=== PATIENT | male | born 1950 | race Caucasian/White ===

== ENCOUNTER 2017-04-26 17:10 | Emergency (ER) | payer OTHER, BC ==
--- NOTE | 2017-04-26 17:47 | EDPHY ---
H & P Time Seen by Provider: 04/26/17 17:41 HPI/ROS: Chief complaint. Elevated blood pressure HPI. [onset, timing, severity, modifying factors, similar symptoms previously, recently seen] ROS Constitutional. [no fever/chills, no weakness] Eyes. [no problems with vision] ENT. [no sore throat, no nasal drainage] Cardiovascular. [no chest pain] Respiratory. [no shortness of breath, no cough] Abdominal. [no abdominal pain, no nausea/vomiting, no diarrhea] . [no problems urinating] MS. [no calf pain/swelling, no neck/back pain, no joint pain] Skin. [no rash] Lymph. [no swollen glands] Neuro. [no headache, no dizziness, no difficulty walking or with speech] Smoking Status: Never smoked Constitutional: Initial Vital Signs Temperature (C) 37.2 C 04/26/17 17:17 Heart Rate 50 L 04/26/17 17:17 Respiratory Rate 15 04/26/17 17:17 Blood Pressure 212/109 H 04/26/17 17:17 O2 Sat (%) 96 04/26/17 17:17 O2 Delivery Mode Room Air Allergies/Adverse Reactions: No Known Allergies Allergy (Unverified 03/28/15 08:24) Home Medications: Medication Instructions Recorded HYOSCYAMINE SULFATE [LEVSIN-SL] 0.125 mg SL Q6-8PRN PRN #6 tab.subl 03/28/15 Ondansetron HCl [Zofran] 4 mg PO Q4-6PRN PRN #6 tablet 03/28/15 Atenolol 04/26/17 LORazepam [Ativan] 1 mg PO Q6-8PRN PRN #10 tab 04/26/17 Lisinopril 04/26/17 Lisinopril 20 mg PO DAILY #20 tablet 04/26/17 Medical Decision Making - Data Points Medications Given: Discontinued Medications Lisinopril (Zestril) 20 mg PO EDNOW ONE Stop: 04/26/17 18:50 Last Admin: 04/26/17 18:55 Dose: 20 mg Departure - Departure Disposition: Home, Routine, Self-Care Clinical Impression: Hypertension Qualifiers: Hypertension type: essential hypertension Qualified Code(s): I10 - Essential ( primary) hypertension Condition: Good Instructions: Hypertension (ED) Additional Instructions: Increase lisinopril to 20 mg daily. May take an extra dose if blood pressure is elevated. Return for elevated blood pressure with symptoms such as visual change, headache, chest discomfort. Follow up with your regular physician upon return to [place] Referrals: MOY GARCIA MD [Other] - As per Instructions Ramy Kearney MD [Medical Doctor] - As per Instructions Reilly Temple MD [Medical Doctor] - As per Instructions Prescriptions: Lisinopril 20 mg PO DAILY #20 tablet LORazepam [Ativan] 1 mg PO Q6-8PRN PRN #10 tab PRN Reason: Anxiety
[2017-04-26] MEDS ORDERED: LISINOPRIL 20 MG TAB PO ONE (18:49)
[2017-04-26 19:31] VITALS: BP 167/102; PULSE 87; RESP 18; TEMP 98.4; O2SAT 97
== END 2017-04-26 19:31 | disposition home or self-care (01) ==
DX: I10 Essential (primary) hypertension (principal)